=== PATIENT | female | born 1945 | race Caucasian/White ===

== ENCOUNTER → 2018-11-08 | Day surgery (SDC) | payer MEDICARE ==
[2018-11-03 16:20] LABS: BASOPHILS # (AUTO) 0.1 (0.0-0.1); BASOPHILS % 0.7 % (0.0-1.0); EOSINOPHILS # (AUTO) 0.3 (0.0-0.4); EOSINOPHILS % 3.6 % (0.0-6.0); HEMATOCRIT 38.3 % (34.2-44.1); HEMOGLOBIN 12.3 g/dL (12.0-16.0); LYMPHOCYTES # (AUTO) 1.9 (1.0-3.2); LYMPHOCYTES % 24.8 % (18.0-39.1); MEAN CORPUSCULAR HEMOGLOBIN 27.6 pg (28-32); MEAN CORPUSCULAR HGB CONC 32.1 g/dL (31-35); MEAN CORPUSCULAR VOLUME 86.1 fL (81-99); MONOCYTES # (AUTO) 0.7 (0.2-0.8); MONOCYTES % 8.8 % (4.4-11.3); NEUTROPHILS # (AUTO) 4.7 (2.1-6.9); PLATELET COUNT 275 x10e3/uL (140-360); RED BLOOD COUNT 4.45 x10e6/uL (3.6-5.1); RED CELL DISTRIBUTION WIDTH 14.6 % (11.7-14.4)
--- NOTE | 2018-11-03 16:21 | Diagnostic Imaging Report ---
Chest, 2 views, 11/03/2018. History: Preop. Comparison: None available. Findings: The cardiomediastinal silhouette and pulmonary vasculature are within normal limits. The lungs are clear without evidence of consolidation or pleural effusion. Degenerative changes are noted in the thoracic spine. There are no acute osseous or soft tissue abnormalities. Impression: No acute cardiopulmonary abnormality. Signed by: Jamie Worrell on 11/03/2018 4:17 PM
[~2018-11-08] MED LIST: ACETAMINOPHEN/CODEINE 300MG - 30MG TAB ONE; BUPIVACAINE HCL 0.5% INJ 30 ML VIAL INJ ONE; CEFAZOLIN SOD 1 GM/NS 50ML 50 ML IV ONE; CLONAZEPAM0.5 MG PO; CRESTOR10 MG PO; CYMBALTA30 MG PO; DEXAMETHASONE SOD PHOS INJ 4 MG/ML VIAL ONE; DICYCLOMINE HCL10 MG PO; FENTANYL CITRATE/PF 100MCG/2 ML INJ ONE; KETOROLAC TROMETHAMINE 30 MG/ML VIAL ONE; LIDOCAINE HCL 2% LOCAL INJ 5 ML SDV VIAL INJ ONE; MIDAZOLAM HCL 2 MG/2 ML VIAL ONE; MUPIROCIN 2% OINT 22 GM TUBE ONE; NEXIUM40 MG PO; ONDANSETRON HCL INJ 2MG/ML 2ML 2 MG/ML VIAL ONE; PROPOFOL IV EMULSION 10 MG/ML 20 ML VIAL ONE; SEVOFLURANE INHAL SOLN 250 ML PEN BTL ONE
--- OUTSIDE RECORDS SUMMARY | 2018-11-08 05:42 | XMS REPORT | Clinical Summary ---
Author Author [facility] Address Unknown Phone Unavailable Care Team Providers Care Desk Manager Name Role Phone Alexx Sommer DO PCP Allergies Comments Active Allergy Reactions Severity Noted Date Banana 02/16/2017 Mold 02/16/2017 Medications End Date Status Medication Sig Dispensed Refills Start Date Active NUCYNTA ER 100 mg 12 hr TK 1 T PO Q 0 tablet 12 H FOR 7 CHRONIC PAIN Active dicyclomine (BENTYL) 10 TK ONE C PO 5 MG capsule QID 7 Active HYDROcodone-acetaminophen TK 1 T PO Q 6 0 (NORCO) 10-325 mg per H PRN P . MAX 7 tablet OF 4 TS PER DAY Active clonAZEPAM (KlonoPIN) 0.5 TK SS T PO 0 MG tablet QHS . JULY 26 INCREASE TO 1 T QD Active cyclobenzaprine TK 1 T PO TID 0 (FLEXERIL) 10 mg tablet PRN SPASMS 7 Active terbinafine HCl (LamiSIL) TK 1 T PO QD 0 250 mg tablet FOR 45 DAYS 7 Active esomeprazole (NexIUM) 40 TK 1 C PO QD 1 MG capsule 7 Active DULoxetine (CYMBALTA) 60 TK 1 C PO 0 MG capsule DAILY 7 Active cetirizine (ZyrTEC) 10 MG Take 10 mg by 0 tablet mouth daily. Active FERROUS SULFATE, DRIED Take by 0 (IRON, DRIED, ORAL) mouth. Active PROAIR HFA 90 INL 2 PFS PO 0 mcg/actuation inhaler Q 4 TO 6 H 7 PRF WHEEZING /SOB Active Problems Not on file Family History Medical History Relation Name Comments Broken bones Mother Daria Moniqueomar r Relation Name Status Comments Mother Daria Avalos Social History Date Tobacco Use Types Packs/Day Years Used Never Smoker Smokeless Tobacco: Never Used Drinks/Week oz/Week Comments Alcohol Use No Sex Assigned at Date Recorded Not on file Industry Job Start Date Occupation Not on file Not on file Not on file Travel End Travel History Travel Start No recent travel history available. Last Filed Vital Signs Not on file Plan of Treatment Health Maintenance Due Date Last Done Comments BREAST CANCER SCREENING 08/03/1995 COLONOSCOPY SCREENING 08/03/1995 SHINGLES VACCINES (#1) 08/03/1995 65+ PNEUMOCOCCAL VACCINE 2010 (1 of 2 - PCV13) INFLUENZA VACCINE 10/20/2018 Implants Device Identifier Shelf Expiration Date Model / Serial / Lot Implanted Type Area Manufactur er 05/18/2021 [id number] / / [id number] Nufix 5.0 Mm Dowel - [id number] Spinal Bilateral: NUTECH Implanted: 03/05/2017 at [facility] Implants Spine Lumbar [facility] (Quantity not on file) 05/18/2021 [id number] / / [id number] Nufix 5.0 Mm Dowel - [id number] Spinal Bilateral: NUTECH Implanted: 03/05/2017 at [facility] Implants Spine Lumbar [facility] (Quantity not on file) 05/19/2021 [id number] / [id number] / [id number] Graft Bone Actifuse [id number] - Surgical Bilateral: LAFLEUR [id number] Implants; Spine Lumbar [employer] Implanted: 03/05/2017 at [facility] Expanders; HOSPITAL (Quantity not on file) Extenders; Surgical Wires Results Not on fileafter 11/07/2017 Insurance Type Payer Benefit Subscriber ID Effective Phone Address Plan / Dates Group PPO HUMANA HUMANA xxxxxxxxx [id number] CHOICE resent CARE PPO Advance Directives For more information, please contact: [phone] Patient Tube Repairer Explanation Type Date Recorded Advance Directives, 03/05/2017 8:20 AM Living Will 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
--- OUTSIDE RECORDS SUMMARY | 2018-11-08 05:42 | XMS REPORT ---
Author Author [facility] Address Unknown Phone Unavailable Care Team Providers Care Dictating Machine Transcriber Name Role Phone MONET VALENCIA Unavailable Unavailable BILLY MARTINES Unavailable Unavailable Problems This patient has no known problems. Allergies, Adverse Reactions, Alerts This patient has no known allergies or adverse reactions. Medications This patient has no known medications. Results Test Description Test Time Test Comments Text Results Atomic Results Result Comments CHEST 2 VIEWS 2018-11-03 16:17:00 [place] [address] Patient Name: CAMILA STEVEN MR #: [id number] : 1945 Age/Sex: 73/F Req #: [id number] Adm Physician: Ordered by: MONET VALENCIA MD Report #: [id number] Location: OR Room/Bed: Procedure: [id number] DX/CHEST 2 VIEWS Exam Date: 11/03/18 Exam Time: 1550 REPORT STATUS: Signed Chest, 2 views, 11/03/2018. History: Preop. Comparison: None available. Findings: The cardiomediastinal silhouette and pulmonary vasculature are within normal limits. The lungs are clear without evidence of consolidation or pleural effusion. Degenerative changes are noted in the thoracic spine. There are no acute osseous or soft tissue abnormalities. Impression: No acute cardiopulmonary abnormality. Signed by: Jamie Worrell on 11/03/2018 4:17 PM Dictated By: JAMIE WORRELL MD 16 Transcribed By: JUSTYNA on 11/03/181616 COPY TO: MONET VALENCIA MD MRI SPINE LUMBAR WO [place] [address] Patient Name: CAMILA STEVEN MR #: [id number] : 1945 Age/Sex: 71/F Req #: [id number] Adm Physician: Ordered by: BILLY MARTINES DO Report #: [id number] Location: MRI Room/Bed: Procedure: [id number] MRI/MRI SPINE LUMBAR WO Exam Date: 11/10/16 Exam Time: 1000 REPORT STATUS: Signed History: Low back pain, bilateral leg pain for 20 years Comparison studies: Outside MRI of the lumbar spine 03/27/2015 Technique: Sagittal, coronal and axial T2 , sagittal T1 and IR, axial spin density oblique. Intravenous contrast: None Findings: Number of lumbar vertebral bodies:5 Alignment: Normal lordosis.Mild dextroscoliosis centered at L3. Soft tissues: No T2 hyperintense inflammatory changes. Paraspinal muscles: Mild fatty infiltration of the paraspinal musculature secondary to atrophy. Lower thoracic cord:Normal in signal and morphology. The tip of the conus is at L1-L2. Cauda equina: No masses. No arachnoiditis. Vertebrae: Normal in height and signal intensity. No compression fractures, infection or neoplasm. Degenerative changes: L1-L2: Mild bilateral facet hyp ertrophy and ligamentum flavum thickening without significant canal stenosis or foraminal narrowing. L2-L3: Disc degeneration with loss of T2 signal and decreased intervertebral space along with endplate irregularities without edema. Mild diffuse disc bulge, mild facet hypertrophy and ligamentum flavum thickening results in no significant canal stenosis and mild bilateral foraminal narrowing. L3-L4: Disc degeneration with loss of T2 signal and decreased intervertebral space along with Modic type I changes. Mild diffuse disc bulge with superimposed left foraminal disc protrusion, moderate facet hypertrophy and ligamentum flavum thickening results in mild canal stenosis, mild right and severe left foraminal narrowing. L4-L5: Disc degeneration with loss of T2 signal without endplate changes. Mild diffuse disc bulge, severe facet hypertrophy and mild ligamentum flavum thickening results in mild canal stenosis and mild bilateral foraminal narrowing. Mild p eriarticular inflammatory changes with posteriorly projecting left synovial cyst measuring 4 mm. L5-S1: Mild diffuse disc bulge and moderate bilateral facet hypertrophy without significant canal stenosis or foraminal narrowing. Additional findings: Partially visualized enlargement of the right lobe of the liver IMPRESSION: Severe left foraminal narrowing and mild canal stenosis at L3-L4 secondary to left foraminal white based disc protrusion and moderate posterior element hypertrophy. Moderate to severe facet hypertrophy from L3 through S1 with mild periarticular inflammatory changes at L4-L5. Disc degeneration from L2 through L5 with Modic type I changes at L3-L4. Other degenerative changes as described above. Signed by: DR Jeremiah Bermudez M.D. on 11/10/2016 12:28 PM Dictated By: JEREMIAH MAGALLON MD 1228 Transcribed By: JUSTYNA on 11/10/16 1228 COPY TO: BILLY MARTINES DO
[2018-11-08 10:25] VITALS: BP 110/63
--- NOTE | 2018-11-08 14:18 | Operative Report ---
DATE OF PROCEDURE: 11/08/2018 SURGEON: Joselo Madera MD PREOPERATIVE DIAGNOSIS: Left carpal tunnel syndrome. POSTOPERATIVE DIAGNOSES: 1. Left carpal tunnel syndrome. 2. Flexor tenosynovitis left wrist. PROCEDURE: 1. Left open carpal tunnel release. 2. Flexor tenosynovectomy left wrist. ANESTHESIA: General. HISTORY: The patient is a 73-year-old with EMG-proven left carpal tunnel syndrome. Risks, benefits and alternatives of treatment were discussed with the patient. The patient is prepared to undergo the procedure as outlined. DESCRIPTION OF PROCEDURE: The patient was brought to the operating theater. After the induction of adequate general inhalation anesthesia, the patient was prepped and draped in the supine position. A time out was performed by the entire operating room team. A 2.5 cm incision was marked out in the intrathenar space. The left upper extremity was exsanguinated, and a tourniquet was inflated to a pressure of 250 mmHg. The incision was made through the skin and subcutaneous tissues and all venous tributaries were controlled with bipolar cautery. The incision was deepened through the palmar fascia until the transverse carpal ligament was identified. The ligament was sharply sectioned, taking care to protect and preserve the median nerve underlying it. After the complete width of the ligament had been transected, the distal volar forearm fascia was divided under direct view. Proliferative flexor tenosynovium was noticed to encompass the median nerve and this was radically excised. After performing this maneuver, the nerve was noted to lie adequately decompressed. The wound was copiously irrigated with bacteriostatic saline, closed with 5-0 nylon in an interrupted horizontal mattress fashion. A Marcaine field block was performed at the operative site. Tourniquet was deflated. All of the fingers pinked up nicely and a sterile bulking conforming bandage was applied to the hand and the wrist. A fiberglass splint was fashioned to maintain the wrist in a modest amount of extension. This was held in place with a loosely wrapped Kameron wrap. The patient tolerated the procedure well and was brought to the recovery room in satisfactory condition and discharged with a postoperative instruction sheet as well as a followup appointment. Joselo Madera MD ER/MODL /[id number]
== END | disposition home or self-care (01) ==
LOC: OR 05:39
PROVIDERS: ATTEND Plastic Surgery
DX: G56.02 Carpal tunnel syndrome, left upper limb (principal); M65.832 Other synovitis and tenosynovitis, left forearm; M19.90 Unspecified osteoarthritis, unspecified site; H91.90 Unspecified hearing loss, unspecified ear; J30.2 Other seasonal allergic rhinitis; K58.9 Irritable bowel syndrome, unspecified; K21.9 Gastro-esophageal reflux disease without esophagitis; R00.1 Bradycardia, unspecified; F32.9 Major depressive disorder, single episode, unspecified; F41.9 Anxiety disorder, unspecified; Z88.0 Allergy status to penicillin; Z91.018 Allergy to other foods; Z91.048 Other nonmedicinal substance allergy status; Z01.810 Encounter for preprocedural cardiovascular examination; Z01.812 Encounter for preprocedural laboratory examination; Z01.818 Encounter for other preprocedural examination
CPT/HCPCS: 25115; 36415; 71046; 85025; 93005; J0690; J1100; J1885; J2001; J2250; J2405; J2704; J3010

== ENCOUNTER → 2021-11-18 | Day surgery (SDC) | payer MEDICARE ==
[2021-11-14 11:25] LABS: BASOPHILS # (AUTO) 0.1 (0.0-0.1); BASOPHILS % 0.7 % (0.0-1.0); EOSINOPHILS # (AUTO) 0.5 (0.0-0.4); EOSINOPHILS % 5.1 % (0.0-6.0); HEMATOCRIT 40.1 % (34.2-44.1); HEMOGLOBIN 12.4 g/dL (12.0-16.0); LYMPHOCYTES # (AUTO) 2.1 (1.0-3.2); LYMPHOCYTES % 20.9 % (18.0-39.1); MEAN CORPUSCULAR HEMOGLOBIN 24.6 pg (28-32); MEAN CORPUSCULAR HGB CONC 30.9 g/dL (31-35); MEAN CORPUSCULAR VOLUME 79.4 fL (81-99); NEUTROPHILS # (AUTO) 6.2 (2.1-6.9); PLATELET COUNT 318 x10e3/uL (140-360); RED BLOOD COUNT 5.05 x10e6/uL (3.6-5.1); RED CELL DISTRIBUTION WIDTH 16.5 % (11.7-14.4)
[~2021-11-18] MED LIST changes: -ACETAMINOPHEN/CODEINE 300MG - 30MG TAB ONE; -BUPIVACAINE HCL 0.5% INJ 30 ML VIAL INJ ONE; -CEFAZOLIN SOD 1 GM/NS 50ML 50 ML IV ONE; +CYCLOBENZAPRINE10 MG PO; -DEXAMETHASONE SOD PHOS INJ 4 MG/ML VIAL ONE; +FAMOTIDINE20 MG PO; -KETOROLAC TROMETHAMINE 30 MG/ML VIAL ONE; +LEVOCETIRIZINE D5 MG PO; -LIDOCAINE HCL 2% LOCAL INJ 5 ML SDV VIAL INJ ONE; +MONTELUKAST SOD10 MG PO; -MUPIROCIN 2% OINT 22 GM TUBE ONE; -ONDANSETRON HCL INJ 2MG/ML 2ML 2 MG/ML VIAL ONE; +POVIDONE IODINE 0.05% 0.05 % ML PO ONE; -SEVOFLURANE INHAL SOLN 250 ML PEN BTL ONE
[2021-11-18 15:43] VITALS: BP 107/71
== END | disposition home or self-care (01) ==
LOC: OR 12:18
PROVIDERS: ATTEND Internal Medicine Gastroenterology
DX: K21.9 Gastro-esophageal reflux disease without esophagitis (principal); D12.0 Benign neoplasm of cecum; D12.4 Benign neoplasm of descending colon; K29.50 Unspecified chronic gastritis without bleeding; K58.9 Irritable bowel syndrome, unspecified; K20.90 Esophagitis, unspecified without bleeding; K62.89 Other specified diseases of anus and rectum; Z98.84 Bariatric surgery status; K57.30 Diverticulosis of large intestine without perforation or abscess without bleeding; K64.8 Other hemorrhoids; G47.33 Obstructive sleep apnea (adult) (pediatric); Z71.3 Dietary counseling and surveillance; F32.A Depression, unspecified; I49.1 Atrial premature depolarization; M19.90 Unspecified osteoarthritis, unspecified site; F41.9 Anxiety disorder, unspecified; H91.90 Unspecified hearing loss, unspecified ear; Z91.048 Other nonmedicinal substance allergy status; Z88.0 Allergy status to penicillin; Z01.810 Encounter for preprocedural cardiovascular examination; Z01.812 Encounter for preprocedural laboratory examination; Z01.818 Encounter for other preprocedural examination; Z20.822 Contact with and (suspected) exposure to COVID-19; Z79.899 Other long term (current) drug therapy; Z68.41 Body mass index [BMI] 40.0-44.9, adult
CPT/HCPCS: 0223U; 36415; 43239; 45384; 45385; 71046; 85025; 93005; C9113; J2250; J2704; J3010; 44391; 45380

== ENCOUNTER → 2022-05-01 | Outpatient (CLI) | payer MEDICARE ==
[~2022-05-01] MED LIST changes: -FENTANYL CITRATE/PF 100MCG/2 ML INJ ONE; +IOPAMIDOL 370 MG/ML 100 ML INFUS..BTL INJ ONE; -MIDAZOLAM HCL 2 MG/2 ML VIAL ONE; -POVIDONE IODINE 0.05% 0.05 % ML PO ONE; -PROPOFOL IV EMULSION 10 MG/ML 20 ML VIAL ONE
[2022-05-01 09:43] LABS: CREATININE, SERUM 0.93 mg/dL (0.57-1.11)
== END ==
LOC: CT 08:43
PROVIDERS: ATTEND Family Medicine
DX: R93.89 Abnormal findings on diagnostic imaging of other specified body structures (principal)
CPT/HCPCS: 36415; 71260; 82565; 84520; Q9967

== ENCOUNTER 2024-04-17 19:14 | Emergency (ER) | payer MEDICARE ==
[~2024-04-17] VITALS: Ht 167.6 cm; Wt 95.7 kg
[~2024-04-17 19:14] MED LIST changes: -IOPAMIDOL 370 MG/ML 100 ML INFUS..BTL INJ ONE
[2024-04-17 19:22] VITALS: TEMP 98.3
[2024-04-17 20:25] VITALS: PULSE 56; RESP 20; O2SAT 98
== END 2024-04-17 20:43 | disposition home or self-care (01) ==
LOC: ER 19:19
DX: S00.83XA Contusion of other part of head, initial encounter (principal); W22.09XA Striking against other stationary object, initial encounter; Y92.89 Other specified places as the place of occurrence of the external cause; K21.9 Gastro-esophageal reflux disease without esophagitis; M54.9 Dorsalgia, unspecified; G89.29 Other chronic pain; F41.9 Anxiety disorder, unspecified; F32.A Depression, unspecified; Z87.19 Personal history of other diseases of the digestive system; Z96.653 Presence of artificial knee joint, bilateral; Z96.641 Presence of right artificial hip joint
CPT/HCPCS: 70450; 99283

== ENCOUNTER 2024-09-12 13:34 | Emergency (ER) | payer MEDICARE ==
[~2024-09-12] VITALS: Ht 167.6 cm; Wt 102.5 kg
[2024-09-12 13:35] VITALS: PULSE 59; RESP 16; TEMP 97.8; O2SAT 100
[2024-09-12] MEDS ORDERED: KETOROLAC TROMETHAMINE 30 MG/ML VIAL IM STA (13:54)
[2024-09-12] MEDS: DEXAMETHASONE SOD PHOS 10 MG/1 ML VIAL IV ONE (14:32)
[2024-09-12] MEDS: KETOROLAC TROMETHAMINE 30 MG/ML VIAL IV STA (14:32)
[2024-09-12] MEDS ORDERED: NAPROXEN250 MG PO (15:06)
[2024-09-12] MEDS ORDERED: NEURONTIN100 MG PO (15:07)
== END 2024-09-12 15:47 | disposition home or self-care (01) ==
LOC: ER 13:42
DX: M54.12 Radiculopathy, cervical region (principal); I73.9 Peripheral vascular disease, unspecified; G62.9 Polyneuropathy, unspecified; M54.9 Dorsalgia, unspecified; G89.29 Other chronic pain; Z96.641 Presence of right artificial hip joint; Z96.653 Presence of artificial knee joint, bilateral; Z98.84 Bariatric surgery status
CPT/HCPCS: 72125; 93005; 99284; J1100; J1885

== ENCOUNTER → 2024-12-28 | Day surgery (SDC) | payer MEDICARE ==
[2024-12-20 15:07] LABS: BASOPHILS % 0.6 % (0.0-1.0); EOSINOPHILS % 5.5 % (0.0-6.0); LYMPHOCYTES % 20.0 % (18.0-39.1); MONOCYTES % 10.6 % (4.4-11.3); NEUTROPHILS % 63.2 % (38.7-80.0); RED CELL DISTRIBUTION WIDTH 21.5 % (11.7-14.4)
[~2024-12-28] MED LIST changes: +FENTANYL CITRATE/PF 100MCG/2 ML INJ ONE; +FISH OIL 1,0001 EAC7 PO; +GLUCAGON FOR INJ 1 MG VIAL ONE; +HYDROCODON-ACE1 EAC9 PO; +HYOSCYAMINE SULFATE 0.5 MG/ML INJ ONE; +LIDOCAINE HCL 2% LOCAL INJ 5 ML SDV VIAL INJ ONE; +METOCLOPRAMIDE HCL 10 MG/2ML VIAL ONE; +MIDAZOLAM HCL 2 MG/2 ML VIAL ONE; +MULTI-VITAMIN1 EACH PO; +NAPROXEN250 MG PO; +NEURONTIN100 MG PO; +ONDANSETRON HCL INJ 2MG/ML 2ML 2 MG/ML VIAL ONE; +PROPOFOL IV EMULSION 50 ML IV ONE
[2024-12-28] MEDS: LACTATED RINGER'S 1,000 ML ONE (08:29)
[2024-12-28 10:32] VITALS: TEMP 98.5
[2024-12-28 10:55] VITALS: BP 127/70; PULSE 60; RESP 18; O2SAT 99
[2024-12-28 11:21] LABS: CDIFF AG QUIK CHEK NEGATIVE (NEGATIVE); CDIFF TOX QUIK CHEK NEGATIVE (NEGATIVE)
== END | disposition home or self-care (01) ==
LOC: OR 06:54
PROVIDERS: ATTEND Internal Medicine Gastroenterology
DX: K29.70 Gastritis, unspecified, without bleeding (principal); D12.2 Benign neoplasm of ascending colon; D12.4 Benign neoplasm of descending colon; K31.7 Polyp of stomach and duodenum; K31.89 Other diseases of stomach and duodenum; K63.89 Other specified diseases of intestine; K58.0 Irritable bowel syndrome with diarrhea; K21.9 Gastro-esophageal reflux disease without esophagitis; K57.30 Diverticulosis of large intestine without perforation or abscess without bleeding; K64.8 Other hemorrhoids; Z98.84 Bariatric surgery status; D64.9 Anemia, unspecified; E78.5 Hyperlipidemia, unspecified; R06.02 Shortness of breath; F32.A Depression, unspecified; F41.9 Anxiety disorder, unspecified; Z88.0 Allergy status to penicillin; Z91.040 Latex allergy status; Z91.018 Allergy to other foods; Z91.048 Other nonmedicinal substance allergy status; Z01.810 Encounter for preprocedural cardiovascular examination; Z01.812 Encounter for preprocedural laboratory examination; Z79.1 Long term (current) use of non-steroidal anti-inflammatories (NSAID); Z79.899 Other long term (current) drug therapy; Z68.38 Body mass index [BMI] 38.0-38.9, adult; Z71.3 Dietary counseling and surveillance; Z91.81 History of falling
CPT/HCPCS: 36415; 43239; 43251; 45380; 45385; 83630; 83993; 85025; 87045; 87177; 87324; 87328; 87449; 93005; J1610; J1980; J2003; J2250; J2405; J2470; J2704; J2765; J3010; J7121; 45378

== ENCOUNTER → 2025-01-17 | Outpatient (REF) | payer MEDICARE ==
[~2025-01-17] MED LIST changes: -FENTANYL CITRATE/PF 100MCG/2 ML INJ ONE; -GLUCAGON FOR INJ 1 MG VIAL ONE; -HYOSCYAMINE SULFATE 0.5 MG/ML INJ ONE; -LIDOCAINE HCL 2% LOCAL INJ 5 ML SDV VIAL INJ ONE; -METOCLOPRAMIDE HCL 10 MG/2ML VIAL ONE; -MIDAZOLAM HCL 2 MG/2 ML VIAL ONE; -ONDANSETRON HCL INJ 2MG/ML 2ML 2 MG/ML VIAL ONE; -PROPOFOL IV EMULSION 50 ML IV ONE
== END ==
LOC: DX 08:18
PROVIDERS: ATTEND Nurse Practitioner
DX: D64.89 Other specified anemias (principal)
CPT/HCPCS: 74250